=== PATIENT | female | born 1955 | race Caucasian/White ===

== ENCOUNTER → 2017-08-04 | Outpatient (CLI) | payer MEDICARE, SELFPAY | PROVIDERS: Visit Provider Emergency Medicine | DX: R53.1 Weakness (principal) | CPT/HCPCS: 80048; 85025 ==

== ENCOUNTER → 2017-08-18 16:28 | Outpatient (REF) | payer MEDICARE, SELFPAY ==
[2017-08-18 18:36] LABS: Basophils # 0.1 K/mm3 (0-0.2); Basophils % 0.2 % (0.1-2.0); Eosinophils % 0.1 % (0.1-12.0); Hematocrit 34.6 % (37.0-47.0); Hemoglobin 10.8 g/dL (12.2-16.2); Lymphocytes # 1.6 K/mm3 (0.7-4.5); Lymphocytes % 5.4 K/mm3 (10-50); Mean Corpuscular HGB Conc 31.3 g/dL (31.8-35.4); Mean Corpuscular Volume 89.2 fl (81-99); Mean Platelet Volume 7.5 fl (7.4-10.4); Monocytes # 0.9 K/mm3 (0.1-1.0); Monocytes % 3.2 % (1.7-9.3); Neutrophils # 26.6 K/mm3 (1.8-7.8); Neutrophils % 91.1 % (37.0-80.0); Platelet Count 787 K/mm3 (142-424); Red Blood Count 3.88 M/mm3 (4.20-5.40); Red Cell Distribution Width 13.1 % (11.5-17.5); White Blood Count 29.2 K/mm3 (4.8-10.8)
[2017-08-18 18:52] LABS: MANUAL DIFFERENTIAL MANUAL DIFFERENTIAL (MANUAL DIFF)
[2017-08-18 19:29] LABS: Lymphocytes % 7 % (10-50); Neutrophils % 84 % (42-76); Total Cells Counted 100
[2017-08-18 19:31] LABS: Hypochromasia 1+; Macrocytosis 1+; Platelet Estimate Marked Increase
[2017-08-20 19:49] LABS: Peripheral Smear Review Scanned Result
== END ==
LOC: LAB 16:28
PROVIDERS: Visit Provider Emergency Medicine
DX: R79.89 Other specified abnormal findings of blood chemistry (principal)
CPT/HCPCS: 85007; 85025

== ENCOUNTER → 2017-08-22 16:36 | Outpatient (REF) | payer MEDICARE, SELFPAY | LOC: LAB 16:36 | PROVIDERS: Visit Provider Nurse Practitioner Family | DX: D72.829 Elevated white blood cell count, unspecified (principal) | CPT/HCPCS: 87070; 87077; 87205 ==

== ENCOUNTER → 2017-08-23 14:31 | Outpatient (CLI) | payer MEDICARE, SELFPAY ==
--- NOTE | 2017-08-23 14:37 | XR_ITS ---
XR chest 2V HISTORY: ITS.REASON: elevated wbc, cough ORDERING PHYSICIAN: Katelyn Peguero PATIENT AGE: 61 years COMPARISON: None available FINDINGS: The cardiomediastinal silhouette and pulmonary vascularity are within normal limits. There is an ill-defined area of increased density in the superior segment of left lower lobe measuring 7 x 6 cm. This contains a central lucent area at 1.9 cm with an air-fluid level. This may related to an area of pneumonia with central cavitation/necrosis. Neoplasm with central necrosis also considered. Recommend CT chest with contrast for further evaluation. The remaining lungs are clear. There are no change changes of the thoracic spine. IMPRESSION: Dense consolidation in the superior segment left lower lobe with central lucency which may represent pneumonia with central necrosis/cavitation/abscess versus pulmonary mass with cavitation. Recommend CT with contrast for further evaluation
== END ==
PROVIDERS: PCP Nurse Practitioner Family; Visit Provider Nurse Practitioner Family
DX: D72.829 Elevated white blood cell count, unspecified (principal)
CPT/HCPCS: 71046

== ENCOUNTER → 2017-09-12 17:02 | Outpatient (CLI) | payer MEDICARE, SELFPAY ==
--- NOTE | 2017-09-12 17:04 | XR_ITS ---
XR knee LT 3V HISTORY: ITS.REASON: pain ORDERING PHYSICIAN: Katelyn Peguero PATIENT AGE: 61 years COMPARISON: 05/29/2017 FINDINGS: No fracture or dislocation. No lytic or blastic change. Normal mineralization. No significant arthritic changes evident. Minimal spurring superior aspect of the patella No other significant findings IMPRESSION: Minimal spurring of the patella otherwise negative no acute finding
--- NOTE | 2017-09-12 17:04 | XR_ITS ---
EXAM: XR lumbar spine 2-3V HISTORY: ITS.REASON: pain ORDERING PHYSICIAN: Katelyn Peguero PATIENT AGE: 61 years COMPARISON: 05/29/2017 FINDINGS: There is moderate lumbar scoliosis convex right measuring 27 degrees. There is wedging along the left lateral aspect of L3. This may be slightly worse compared to the previous exam. Degenerative disc disease is noted at L2-L3 through L4-5 and L5-S1. There is 5 mm anterolisthesis of L4 on L5. There is moderate amount retained colonic feces. IMPRESSION: Multilevel degenerative disc disease with lumbar scoliosis. The left lateral compression changes at L3 appear slightly worse. This may be confirmed with CT if clinically warranted.
--- NOTE | 2017-09-12 17:04 | XR_ITS ---
XR hip LT 2-3V w/pelvis HISTORY: Left hip pain ITS.REASON: pain ORDERING PHYSICIAN: Katelyn Peguero PATIENT AGE: 61 years COMPARISON: 05/29/2017 FINDINGS: No fracture or dislocation is evident. Minimal osteoarthritic change of the left hip. There remains mild thickening of the superior and inferior pubic ramus as previously described not significantly changed. Degenerative changes are present in the left SI joint. IMPRESSION: 1. No change with no acute finding. 2. Mild osteoarthritis of the left hip and left SI joint
[2017-09-12 18:03] LABS: Basophils % 0.5 % (0.1-2.0); Eosinophils # 0.6 K/mm3 (0.0-0.4); Eosinophils % 6.2 % (0.1-12.0); Hematocrit 37.4 % (37.0-47.0); Hemoglobin 11.4 g/dL (12.2-16.2); Lymphocytes # 2.4 K/mm3 (0.7-4.5); Lymphocytes % 25.9 K/mm3 (10-50); Mean Corpuscular HGB Conc 30.6 g/dL (31.8-35.4); Mean Corpuscular Hemoglobin 28.2 pg (27.0-31.2); Mean Corpuscular Volume 92.2 fl (81-99); Mean Platelet Volume 6.9 fl (7.4-10.4); Monocytes # 0.6 K/mm3 (0.1-1.0); Monocytes % 6.3 % (1.7-9.3); Neutrophils # 5.7 K/mm3 (1.8-7.8); Platelet Count 493 K/mm3 (142-424); Red Blood Count 4.05 M/mm3 (4.20-5.40); Red Cell Distribution Width 14.5 % (11.5-17.5); White Blood Count 9.4 K/mm3 (4.8-10.8)
[2017-09-12 19:56] LABS: Alanine Aminotransferase 18 U/L (12-78); Albumin Level 3.2 gm/dL (3.4-5.0); Alkaline Phosphatase 115 U/L (46-116); Anion Gap 12.2 mEq/L (5-15); Aspartate Amino Transferase 18 U/L (15-37); Bilirubin,Total 0.2 mg/dL (0.2-1.0); Blood Urea Nitrogen 8 mg/dL (7-18); Calcium 8.9 mg/dL (8.5-10.1); Carbon Dioxide 26 mmol/L (21.0-32.0); Chloride 105 mmol/L (98-107); Creatinine,Serum 0.46 mg/dL (0.55-1.02); Estimated Glomerular Filt Rate 137 ml/min (>60); GFR (African American) 166 ML/MIN (>60); Globulin 3.2 gm/dl (1.3-3.2); Glucose 89 mg/dL (74-106); Potassium 5.2 mmoL/L (3.5-5.1); Sodium 138 mmol/L (136-145); Total Protein,Serum 6.4 gm/dL (6.4-8.2)
== END ==
PROVIDERS: PCP Nurse Practitioner Family; Visit Provider Nurse Practitioner Family
DX: R52 Pain, unspecified (principal); R53.83 Other fatigue
CPT/HCPCS: 72100; 73502; 73562; 80053; 85025

== ENCOUNTER → 2017-10-03 14:13 | Outpatient (CLI) | payer MEDICARE, SELFPAY ==
--- NOTE | 2017-10-03 14:15 | CT_ITS ---
CT chest wo con HISTORY: Abnormal chest x-ray, tobacco use, hilar mass, ORDERING PHYSICIAN: Spencer Bai MD PATIENT AGE: 61 years TECHNIQUE: Axial images obtained. Sagittal and coronal reformatted images are also generated and reviewed. CONTRAST: None COMPARISON: Radiograph of 08/23/2017 FINDINGS: No obvious mediastinal or hilar mass is evident. Small lymph nodes cannot be visualized as the study was performed without IV contrast. There are coronary artery calcifications and/or stents. There is minimal thickening of the pericardium anteriorly. Soft tissue density is noted in the superior segment of the left lower lobe measuring up to 4 x 4 cm extending from the left hilum to the pleural surface with some air bronchograms anteriorly. In addition, there is peripheral opacification in the left lower lobe posteriorly and inferiorly in the posterior basilar segment measuring 3.5 x 2.2 cm AP and transverse and 6.3 cm cephalad to caudad. On the radiograph there was a question of cavitation which is not apparent on the CT scan. There are centrilobular emphysematous changes. There is a small pleural effusion on the left. Upper abdominal images are unremarkable. No bony destructive process evident. There are old fractures of the right eighth, ninth, and 10th ribs. IMPRESSION: 1. Irregular soft tissue density in the left upper lobe in the superior segment and posterior basilar segment corresponding to the radiographic abnormality. This may represent dense consolidation/volume loss from pneumonia. One cannot exclude underlying neoplastic process therefore, close follow-up CT is recommended in 2-4 weeks with contrast to ensure that the areas of consolidation are resolving and do not represent neoplasm. Small left pleural effusion. The area of cavitation have resolved. 2. Centrilobular emphysema. 3. Coronary artery disease
== END ==
PROVIDERS: Family Provider Nurse Practitioner Family; PCP Nurse Practitioner Family; Visit Provider Emergency Medicine
DX: R93.8 Abnormal findings on diagnostic imaging of other specified body structures (principal)
CPT/HCPCS: 71250

== ENCOUNTER → 2017-11-24 14:31 | Outpatient (CLI) | payer MEDICARE, SELFPAY ==
[2017-11-24 14:48] LABS: Basophils % 0.5 % (0.1-2.0); Eosinophils # 0.5 K/mm3 (0.0-0.4); Eosinophils % 6.3 % (0.1-12.0); Hematocrit 37.6 % (37.0-47.0); Hemoglobin 12.1 g/dL (12.2-16.2); Lymphocytes # 2.3 K/mm3 (0.7-4.5); Lymphocytes % 27.5 K/mm3 (10-50); Mean Corpuscular HGB Conc 32.2 g/dL (31.8-35.4); Mean Corpuscular Hemoglobin 28.6 pg (27.0-31.2); Mean Corpuscular Volume 88.8 fl (81-99); Mean Platelet Volume 7.1 fl (7.4-10.4); Monocytes # 0.6 K/mm3 (0.1-1.0); Monocytes % 6.9 % (1.7-9.3); Neutrophils # 4.8 K/mm3 (1.8-7.8); Neutrophils % 58.8 % (37.0-80.0); Platelet Count 399 K/mm3 (142-424); Red Blood Count 4.23 M/mm3 (4.20-5.40); Red Cell Distribution Width 13.2 % (11.5-17.5); White Blood Count 8.2 K/mm3 (4.8-10.8)
[2017-11-24 15:02] LABS: Alanine Aminotransferase 17 U/L (12-78); Albumin Level 3.5 gm/dL (3.4-5.0); Albumin/Globulin Ratio 1.1 (1.1-1.8); Alkaline Phosphatase 116 U/L (46-116); Anion Gap 9.2 mEq/L (5-15); Aspartate Amino Transferase 17 U/L (15-37); Bilirubin,Total 0.2 mg/dL (0.2-1.0); Blood Urea Nitrogen 9 mg/dL (7-18); Carbon Dioxide 31 mmol/L (21.0-32.0); Chloride 103 mmol/L (98-107); Creatinine,Serum 0.56 mg/dL (0.55-1.02); Estimated Glomerular Filt Rate 109 ml/min (>60); GFR (African American) 132 ML/MIN (>60); Globulin 3.1 gm/dl (1.3-3.2); Glucose 106 mg/dL (74-106); Potassium 5.2 mmoL/L (3.5-5.1); Sodium 138 mmol/L (136-145); Total Protein,Serum 6.6 gm/dL (6.4-8.2)
--- NOTE | 2017-11-24 15:21 | CT_ITS ---
CT chest w con COMPARISON: CT scan the chest 10/03/2017 HISTORY: Follow-up left lower lobe mass versus pneumonic infiltrate TECHNIQUE: Multiaxial scans obtained from the thoracic inlet the hemidiaphragms and were performed with IV contrast. Sagittal coronal reformats were evaluated as well. FINDINGS: The lung lubin are well expanded. There is been marked interval improvement in the appearance of the irregular opacity in the superior segment left lower lobe. This suggest a essentially complete clearing of the pneumonic infiltrate with minimal residual scarring. The remainder lung lubin are clear. The superior mediastinum and rey are unremarkable. Cardiac size is normal. Is no pleural fluid. Again noted are mild centrilobular emphysematous changes primarily the upper lobes. Prominent degenerative changes are seen in the lower thoracic spine. IMPRESSION: Almost completely resolved pneumonic infiltrate with minimal residual scarring.
== END ==
PROVIDERS: Family Provider Nurse Practitioner Family; PCP Nurse Practitioner Family; Visit Provider Internal Medicine
DX: R91.8 Other nonspecific abnormal finding of lung field (principal)
CPT/HCPCS: 36415; 71260; 80053; 85025; Q9967

== ENCOUNTER → 2018-07-09 18:07 | Outpatient (CLI) | payer MEDICARE, SELFPAY ==
--- NOTE | 2018-07-09 18:09 | XR_ITS ---
XR chest 2V HISTORY: ITS.REASON: cough ORDERING PHYSICIAN: Soo Heredia PATIENT AGE: 62 years COMPARISON: 08/23/2017 FINDINGS: The cardiomediastinal silhouette and pulmonary vascularity are within normal limits. The lungs are clear without infiltrates, suspicious nodules, or pleural effusions. Degenerative changes are present in the thoracic spine No acute bony abnormalities. IMPRESSION: Negative chest, no acute finding
== END ==
PROVIDERS: PCP Nurse Practitioner Family; Visit Provider Nurse Practitioner Family
DX: R05 Cough (principal)
CPT/HCPCS: 71046

== ENCOUNTER → 2018-07-19 18:09 | Outpatient (CLI) | payer MEDICARE, SELFPAY ==
[2018-07-19 18:44] LABS: Basophils % 0.3 % (0.1-2.0); Eosinophils # 0.1 K/mm3 (0.0-0.4); Eosinophils % 0.6 % (0.1-12.0); Hematocrit 43.4 % (37.0-47.0); Hemoglobin 14.1 g/dL (12.2-16.2); Lymphocytes # 1.7 K/mm3 (0.7-4.5); Lymphocytes % 15.3 % (10-50); Mean Corpuscular HGB Conc 32.5 g/dL (31.8-35.4); Mean Corpuscular Hemoglobin 29.4 pg (27.0-31.2); Mean Corpuscular Volume 90.5 fl (81-99); Mean Platelet Volume 7.1 fl (7.4-10.4); Monocytes # 0.5 K/mm3 (0.1-1.0); Monocytes % 4.9 % (1.7-9.3); Neutrophils # 8.5 K/mm3 (1.8-7.8); Platelet Count 491 K/mm3 (142-424); Red Blood Count 4.79 M/mm3 (4.20-5.40); Red Cell Distribution Width 13.6 % (11.5-17.5); White Blood Count 10.8 K/mm3 (4.8-10.8)
[2018-07-19 23:33] LABS: Alanine Aminotransferase 20 U/L (12-78); Albumin Level 3.9 gm/dL (3.4-5.0); Albumin/Globulin Ratio 1.2 (1.1-1.8); Alkaline Phosphatase 121 U/L (46-116); Aspartate Amino Transferase 11 U/L (15-37); Bilirubin,Total 0.5 mg/dL (0.2-1.0); Blood Urea Nitrogen 7 mg/dL (7-18); Calcium 8.9 mg/dL (8.5-10.1); Carbon Dioxide 26 mmol/L (21.0-32.0); Chloride 99 mmol/L (98-107); Creatinine,Serum 0.61 mg/dL (0.55-1.02); Estimated Glomerular Filt Rate 99 ml/min (>60); Free Thyroxine Index 2.8 ug/dL (5.93-13.13); GFR (African American) 119 ML/MIN (>60); Globulin 3.2 gm/dl (1.3-3.2); Glucose 151 mg/dL (74-106); Sodium 138 mmol/L (136-145); T4 (Thyroxine) 8.1 ug/dl (4.7-13.3); Thyroid Stimulating Hormone 0.48 uIU/ml (0.358-3.740); Total Protein,Serum 7.1 gm/dL (6.4-8.2); Triiodothryronine (T3) Uptake 35 % (31-39)
== END ==
PROVIDERS: Visit Provider Nurse Practitioner Family
DX: J32.9 Chronic sinusitis, unspecified (principal); R53.83 Other fatigue
CPT/HCPCS: 80053; 84436; 84443; 84479; 85025

== ENCOUNTER → 2018-10-11 21:09 | Outpatient (CLI) | payer MEDICARE, SELFPAY | PROVIDERS: PCP Nurse Practitioner Family; Visit Provider Specialist | DX: G47.33 Obstructive sleep apnea (adult) (pediatric) (principal) | CPT/HCPCS: 95811 ==

== ENCOUNTER 2019-01-02 16:33 | Outpatient (RCR) | payer MEDICARE, SELFPAY | END 2019-01-02 16:40 | disposition home or self-care (01) | LOC: PT 16:33 | PROVIDERS: Visit Provider Anesthesiology | DX: M51.27 Other intervertebral disc displacement, lumbosacral region (principal) | CPT/HCPCS: 97163 ==